=== PATIENT | male | born 1960 | race Caucasian/White ===

== ENCOUNTER 2019-03-01 00:03 | Inpatient (IN) | payer OTHER ==
[~2019-03-01] VITALS: Ht 182.9 cm; Wt 82.2 kg
[2019-03-01 00:09] VITALS: Ht 182.9 cm; Wt 82.2 kg
[2019-03-01 00:47] LABS: BASOPHIL % 0.2 % (0-2); PLATELET COUNT 208 x10^3mcL (130-400); RED CELL DISTRIBUTION WIDTH 12.9 % (11.5-14.5)
[2019-03-01 01:05] LABS: CALCIUM 8.2 mg/dL (8.5-10.1); CARBON DIOXIDE 22.4 mmol/L (21-32); CHLORIDE SERUM 99 mmol/L (98-107); GFR1 > 60 mL/min; GLUCOSE SERUM 184 mg/dL (74-106); POTASSIUM SERUM 3.6 mmol/L (3.5-5.1); SODIUM SERUM 137 mmol/L (136-145)
[2019-03-01 01:08] LABS: ALBUMIN 3.6 g/dL (3.4-5.0); ALKALINE PHOSPHATASE 101 U/L (46-116); ALT/SGPT 25 U/L (16-63); AST/SGOT 33 U/L (15-37); BILIRUBIN TOTAL 0.72 mg/dL (0.20-1.00); TOTAL PROTEIN, SERUM 7.5 g/dL (6.4-8.2)
[2019-03-01 01:12] LABS: AMPHETAMINE QUAL UR NONE DETECTED (See below)
[2019-03-01 05:28] VITALS: BP 168/94
[2019-03-01] MEDS ORDERED: HYDROCHLOROTH12.5 M2 PO (08:59)
[2019-03-01] MEDS ORDERED: HYDROXYZINE HYD25 MG PO (09:00)
[2019-03-01] MEDS ORDERED: CYCLOBENZAPRINE10 MG PO (09:02)
[2019-03-01 09:11] VITALS: BP 162/89
[2019-03-01 12:50] VITALS: BP 154/91
[2019-03-01 15:00] VITALS: BP 146/85
[2019-03-01 16:56] VITALS: BP 140/85
[2019-03-01 19:52] VITALS: BP 139/90
[2019-03-02 06:22] VITALS: BP 147/95
[2019-03-02 06:31] LABS: PLATELET COUNT 184 x10^3mcL (130-400); RED CELL DISTRIBUTION WIDTH 12.6 % (11.5-14.5)
[2019-03-02 07:05] LABS: ALKALINE PHOSPHATASE 84 U/L (46-116); ALT/SGPT 25 U/L (16-63); AST/SGOT 27 U/L (15-37); BILIRUBIN TOTAL 0.68 mg/dL (0.20-1.00); CALCIUM 8.1 mg/dL (8.5-10.1); CARBON DIOXIDE 28.4 mmol/L (21-32); CHLORIDE SERUM 106 mmol/L (98-107); CREATININE SERUM 0.8 mg/dL (0.7-1.3); GFR1 > 60 mL/min; GLUCOSE SERUM 92 mg/dL (74-106); POTASSIUM SERUM 3.1 mmol/L (3.5-5.1); SODIUM SERUM 142 mmol/L (136-145); TOTAL PROTEIN, SERUM 6.9 g/dL (6.4-8.2)
[2019-03-02 07:11] LABS: ALBUMIN 3.1 g/dL (3.4-5.0)
[2019-03-02 07:34] LABS: BASOPHIL % 0 % (0-2)
[2019-03-02 09:06] VITALS: BP 158/103
[2019-03-02] MEDS ORDERED: V5 PO (10:01)
[2019-03-02] MEDS ORDERED: LOP50 PO (10:02)
[2019-03-02 14:51] VITALS: BP 162/97
[2019-03-02 17:15] VITALS: BP 175/109
[2019-03-02 18:57] VITALS: BP 165/104
== END 2019-03-02 20:58 | disposition home or self-care (01) | DRG 79 ==
LOC: ED 00:03 → DU 02:30
PROVIDERS: Emergency Medicine; Internal Medicine Pulmonary Disease; ADMIT Internal Medicine
DX: I67.4 Hypertensive encephalopathy (principal); R56.9 Unspecified convulsions; Y90.9 Presence of alcohol in blood, level not specified; I11.0 Hypertensive heart disease with heart failure; I50.9 Heart failure, unspecified; I16.0 Hypertensive urgency; F10.10 Alcohol abuse, uncomplicated; Z68.25 Body mass index [BMI] 25.0-25.9, adult; Z23 Encounter for immunization; Z79.899 Other long term (current) drug therapy
CPT/HCPCS: 87804; 90658; 90732; G0378; G0480; J1885; J2060; J2270; J3480; J7030; Q0092